=== PATIENT | female | born 1960 | race Caucasian/White ===

== ENCOUNTER 2019-11-02 15:44 | Emergency (ER) | payer OTHER, SELFPAY ==
[2019-11-02] VITALS (10 sets, daily range): BP systolic 167–206; BP diastolic 72–92; PULSE 68–82; RESP 15–23; TEMP 36.4–37; O2SAT 97–99
[2019-11-02 16:40] LABS: Add Manual Diff / Slide Review NO; Basophils Absolute Auto 100 /uL (0-100); Basophils Percent Auto 1.5 % (0-2); Eosinophils Absolute Auto 100 /uL (0-450); Eosinophils Percent Auto 1.7 % (2-4); Hemoglobin 16.2 g/dL (12.0-16.0); Lymphocytes Absolute Auto 1400 /uL (1100-4500); Lymphocytes Percent Auto 23.8 % (25-40); Mean Corpuscular Hemoglobin 30.4 PG (26-34); Mean Corpuscular Volume 92.3 fL (80-100); Monocytes Absolute Auto 700 /uL (0-900); Monocytes Percent Auto 12.4 % (3-14); Neutrophils Absolute Auto 3600 /uL (1500-7000); Neutrophils Percent Auto 60.6 % (50-75); Platelet Count 168 X10^3/uL (150-400); Red Blood Cell Count 5.31 X10^6/uL (4.0-5.2); Red Cell Distribution Width 13.8 % (11.6-14.8); White Blood Cell Count 5.9 X10^3/uL (4.5-11.0)
[2019-11-02] MEDS: SODIUM CHLORIDE 0.9% 1,000 ML 1000 ML IV ×2 (16:49→18:54)
[2019-11-02 16:54] LABS: INR 0.9 (0.9-1.3); Prothrombin Time 10.8 SECONDS (10.1-12.7)
[2019-11-02 16:57] LABS: PTT Partial Thromboplastin Tim 31 SECONDS (26.4-36.2)
[2019-11-02 17:21] LABS: Bacteria Urine Occasional (0-1); Culture Indicated Urine Cult Not Indicated; RBC Urine 1-5/HPF (0-5/HPF); Squamous Epithelial Cell Urine 1-5 /HPF (0-5/HPF); WBC Urine 1-5/HPF (0-5/HPF)
[2019-11-02 17:32] LABS: Magnesium 1.7 mg/dL (1.6-2.3); Phosphorous 3.9 mg/dL (2.5-4.5)
[2019-11-02 17:33] LABS: Alanine Aminotransferase 27 IU/L (<35); Albumin 3.9 g/dL (3.5-5.0); Albumin Globulin Ratio 1.3 (1.0-2.8); Alkaline Phosphatase 110 U/L (38-126); Aspartate Aminotransferase 30 IU/L (14-36); Bilirubin Total 0.4 mg/dL (0.2-1.3); Blood Urea Nitrogen 15 mg/dL (7-17); Carbon Dioxide 29 mmol/L (22-32); Chloride 104 mmol/L (98-107); Estimated Glomerular Filt Rate > 60.0 mL/min (>60); Glucose 380 mg/dL (70-100); HEMOLYSIS < 15 (0-50); Lipase 113 U/L (23-300); Potassium 4.7 mmol/L (3.4-5.1); Sodium 141 mmol/L (137-145); Total Protein 6.9 g/dL (6.3-8.2)
[2019-11-02 17:36] LABS: Ketones (Beta-Hydroxybutyrate) 0.34 mmol/L (<0.27)
--- NOTE | 2019-11-02 18:47 | DI.RAD.S_ITS ---
PROCEDURE: XR CHEST 1V INDICATIONS: cough TECHNIQUE: One view of the chest was acquired. COMPARISON: None. FINDINGS: Surgical changes and devices: None. Lungs and pleura: Lungs are clear. No pleural effusions or pneumothorax. Mediastinum: Mediastinal contours appear normal. Heart size is normal. Bones and chest wall: No suspicious bony lesions. Overlying soft tissues appear unremarkable. IMPRESSION: Normal chest. Dictated by: Page Andrade M.D. on 11/02/2019 at 20:08 Approved by: Page Andrade M.D. on 11/02/2019 at 20:09
[2019-11-02] MEDS: METOPROLOL TARTRATE 5 MG/5 ML INJ IV (19:30)
--- NOTE | 2019-11-02 22:04 | ED.RECABL ---
HPI - Recheck/Abnormal Lab/Rx <INGRIS Jolly - Last Filed: 11/02/19 22:30> General Chief Complaint: Recheck/Abnormal Lab/Rx Stated Complaint: Type 1 D, labs are off Time Seen by Provider: 11/02/19 16:29 Source: patient Mode of arrival: Ambulatory Limitations: no limitations History of Present Illness HPI narrative: This is a 59-year-old female, smoker, who presents to ED after she was referred by her primary care physician to ED for ketoacidosis. Patient states she was diagnosed with type 2 diabetes 16 years ago and now she has been using insulin last 7 years with Lantus 30 units in the morning, 3-6 units during evening with NovoLog as needed. Patient reports has been feeling tired recently but denies any recent changes in insulin doses or recent illness. Patient also currently using Enbrel and leflunomide for rheumatoid arthritis, also has history of hypertension. Patient also reports occasional very brief period of chest discomfort in the past usually associated with increase in activity. Denies any associated symptoms such as dizziness, breathing difficulty, nausea/vomiting, diaphoresis. 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 Related Data Home Medications Medication Instructions Recorded Confirmed atenolol 25 mg PO DAILY 11/02/19 11/02/19 diclofenac sodium 0 g TOPICAL PRN PRN 11/02/19 11/02/19 etanercept [Enbrel] SUBCUT 11/02/19 insulin aspart U-100 [Novolog unit SUBCUT 11/02/19 Flexpen U-100 Insulin] insulin glargine [Lantus Solostar unit SUBCUT 11/02/19 U-100 Insulin] leflunomide 20 mg PO DAILY 11/02/19 11/02/19 Allergies Allergy/AdvReac Type Severity Reaction Status Date / Time Sulfa (Sulfonamide Allergy Severe Anaphylaxis Verified 11/02/19 15:52 Antibiotics) methocarbamol [From Robaxin] Allergy Mild ITCHING Verified 11/02/19 15:52 Review of Systems <INGRIS Jolly - Last Filed: 11/02/19 22:30> Review of Systems Narrative: General: Denies fever, chills, (+) fatigue, malaise, sweats. HEENT: Denies sinus pain, ear pain, sore throat, difficulty swallowing, dizziness. Respiratory: Denies dyspnea, cough, wheezing, hemoptysis, sputum. Cardiovascular: Denies (+)occasional a brief period of chest pain but denies at this time, palpitations, orthopnea, edema. Gastrointestinal: Denies nausea, vomiting, abdominal pain, diarrhea, constipation, melena. : Denies dysuria, frequency, incontinence, hematuria, urinary retention. Musculoskeletal: Denies weakness, joint pain or bony pain. Skin: Denies rash, skin lesions, or other. Neurologic: Denies weakness, headache, numbness, change in speech, confusion, seizures, incoordination. Psychiatric: No concerning psychosocial issues. 12-point review of systems is negative except for those stated above. Patient History <INGRIS Jolly - Last Filed: 11/02/19 22:30> Medical History Bulging disc (Acute) Diabetes mellitus (Acute) Surgical History History of appendectomy (Acute) History of tonsillectomy (Acute) Previous back surgery (Acute) Social History Smoking Status: Current every day smoker Smoking Status: Current every day smoker tobacco type: cigarettes alcohol intake frequency: 0-2 drinks per day Substance Use Type: does not use Exam <INGRIS Jolly - Last Filed: 11/02/19 22:30> Narrative Exam Narrative: GEN: Alert, oriented x 3, well appearing and nourished, and in no acute distress. Head: Normal cephalic, atraumatic. No scalp or temporal tenderness, palpable mass or rash. EYES: Pupils are equal, round, and reactive to light and accommodation. Extraocular muscles are intact bilaterally. There is no subconjunctival hemorrhage, exudate and sclera non-icteric. ENT: Bilateral auditory canals and tympanic membranes clear. Hearing grossly intact. Nose without bleeding, purulent discharge or deviation. Facial sinuses nontender to palpate. Mucous membrane moist, no mucosal lesion. Throat without erythema, tonsillar hypertrophy or exudate. Uvula in midline, airway patent. Neck: Trachea in midline. No JVD, non-tender without lymphadenopathy. No masses or thyroid megaly. Supple, non-tender and no meningeal signs. CARDIAC: Normal regular rate and rhythm without murmurs, gallops, or rubs. No chest wall tenderness. No peripheral edema, cyanosis or pallor. Capillary refill is less than 2 seconds. RESPIRATORY: Lungs are clear to auscultate bilaterally. No cough, wheezes, rales, or rhonchi. No stridor, respiratory distress, increase work of breathing, or accessary muscle used. ABD: Abdomen soft, nontender and non-distended. No guarding or rebound tenderness to palpate. Bowel sounds are normal in all 4 quadrants. There is no palpable masses or organomegaly. EXT: Full painless ROM of all extremities with no loss of sensation, strength, effusion or edema. SKIN: Warm, dry, normal color for patient. No erythema, lesions or rash over visible areas. BACK: Nontender without deformity or crepitance. No flank tenderness. NEUROLOGICAL: Alert and oriented to place, time and person. Sensation and motor function intact bilaterally. No facial droops, dysphasia. PSYCHIATRIC: Good judgement and reason, without hallucinations, abnormal affect or abnormal behaviors during the examination. Initial Vital Signs Initial Vital Signs: Vital Signs Temperature 97.5 F L 11/02/19 15:46 Pulse Rate 82 11/02/19 15:46 Respiratory Rate 18 11/02/19 15:46 Blood Pressure 179/80 H 11/02/19 15:46 Pulse Oximetry 98 11/02/19 15:46 <Bud Ontiveors DO - Last Filed: 11/03/19 06:58> Initial Vital Signs Initial Vital Signs: Vital Signs Temperature 97.5 F L 11/02/19 15:46 Pulse Rate 82 11/02/19 15:46 Respiratory Rate 18 11/02/19 15:46 Blood Pressure 179/80 H 11/02/19 15:46 Pulse Oximetry 98 11/02/19 15:46 Scores <INGRIS Jolly - Last Filed: 11/02/19 22:30> GCS [place] coma scale eye opening: Spontaneous [place] coma scale verbal response: Orientated [place] coma scale motor response: Obey commands [place] coma scale total score: 15 Course <INGRIS Jolly - Last Filed: 11/02/19 22:30> Orders Ordered: Discontinued Medications Sodium Chloride (Normal Saline 0.9%) 1,000 mls @ 1,000 mls/hr IV BOLUS ONE Stop: 11/02/19 17:05 Last Infusion: 11/02/19 18:54 Dose: 0 mls/hr Documented by: Admin: 11/02/19 16:49 Dose: 1,000 mls/hr Documented by: YOSELIN Sodium Chloride (Normal Saline 0.9%) 1,000 mls @ 1,000 mls/hr IV BOLUS ONE Stop: 11/02/19 19:32 Last Infusion: 11/02/19 19:52 Dose: 0 mls/hr Documented by: Infusion: 11/02/19 19:13 Dose: 500 mls/hr Documented by: Admin: 11/02/19 18:54 Dose: 1,000 mls/hr Documented by: YOSELIN Metoprolol Tartrate (Lopressor) 5 mg IV NOW ONE Stop: 11/02/19 19:06 Last Admin: 11/02/19 19:30 Dose: 5 mg Documented by: ROMI Ondansetron HCl (Zofran) 4 mg IV NOW ONE Stop: 11/02/19 16:07 Last Admin: 11/02/19 16:36 Dose: Not Given Documented by: ROSEMARY Vital Signs Vital signs: Vital Signs - 8 hr 11/02/19 15:46 11/02/19 16:37 11/02/19 16:40 Temperature 97.5 F L 98.6 F Pulse Rate 82 70 72 Respiratory Rate 18 23 20 Blood Pressure 179/80 H Blood Pressure [Left Arm] 195/92 H 201/89 H Pulse Oximetry 98 99 98 11/02/19 17:46 11/02/19 18:00 11/02/19 18:30 Temperature Pulse Rate 76 71 74 Respiratory Rate 16 17 16 Blood Pressure Blood Pressure [Left Arm] 199/83 H 191/80 H 196/83 H Pulse Oximetry 98 98 98 11/02/19 18:58 11/02/19 19:41 11/02/19 19:50 Temperature Pulse Rate 68 71 Respiratory Rate 20 16 Blood Pressure Blood Pressure [Left Arm] 206/84 H 184/77 H 171/73 H Pulse Oximetry 97 98 11/02/19 20:09 Temperature Pulse Rate 72 Respiratory Rate 15 Blood Pressure 167/72 H Blood Pressure [Left Arm] Pulse Oximetry 98 <Bud Ontiveros DO - Last Filed: 11/03/19 06:58> Orders Ordered: Discontinued Medications Sodium Chloride (Normal Saline 0.9%) 1,000 mls @ 1,000 mls/hr IV BOLUS ONE Stop: 11/02/19 17:05 Last Infusion: 11/02/19 18:54 Dose: 0 mls/hr Documented by: Admin: 11/02/19 16:49 Dose: 1,000 mls/hr Documented by: YOSELIN Sodium Chloride (Normal Saline 0.9%) 1,000 mls @ 1,000 mls/hr IV BOLUS ONE Stop: 11/02/19 19:32 Last Infusion: 11/02/19 19:52 Dose: 0 mls/hr Documented by: Infusion: 11/02/19 19:13 Dose: 500 mls/hr Documented by: Admin: 11/02/19 18:54 Dose: 1,000 mls/hr Documented by: YOSELIN Metoprolol Tartrate (Lopressor) 5 mg IV NOW ONE Stop: 11/02/19 19:06 Last Admin: 11/02/19 19:30 Dose: 5 mg Documented by: ROMI Ondansetron HCl (Zofran) 4 mg IV NOW ONE Stop: 11/02/19 16:07 Last Admin: 11/02/19 16:36 Dose: Not Given Documented by: ROSEMARY Vital Signs Vital signs: Vital Signs - 8 hr 11/02/19 15:46 11/02/19 16:37 11/02/19 16:40 Temperature 97.5 F L 98.6 F Pulse Rate 82 70 72 Respiratory Rate 18 23 20 Blood Pressure 179/80 H Blood Pressure [Left Arm] 195/92 H 201/89 H Pulse Oximetry 98 99 98 11/02/19 17:46 11/02/19 18:00 11/02/19 18:30 Temperature Pulse Rate 76 71 74 Respiratory Rate 16 17 16 Blood Pressure Blood Pressure [Left Arm] 199/83 H 191/80 H 196/83 H Pulse Oximetry 98 98 98 11/02/19 18:58 11/02/19 19:41 11/02/19 19:50 Temperature Pulse Rate 68 71 Respiratory Rate 20 16 Blood Pressure Blood Pressure [Left Arm] 206/84 H 184/77 H 171/73 H Pulse Oximetry 97 98 11/02/19 20:09 Temperature Pulse Rate 72 Respiratory Rate 15 Blood Pressure 167/72 H Blood Pressure [Left Arm] Pulse Oximetry 98 MDM - Recheck/Abnormal Lab/Rx <INGRIS Jolly - Last Filed: 11/02/19 22:30> Differential Diagnosis Differential diagnosis: Likely other (Diabetic ketoacidosis, hyperglycemia, infection, dehydration) Medical Records Attestation: I reviewed the patient's medical records. Lab Data Attestation: I reviewed the patient's lab results. Result diagrams: 11/02/19 16:17 11/02/19 17:17 Labs: Lab Results 11/02/19 11/02/19 11/02/19 Range/Units 16:16 16:17 16:17 WBC 5.9 (4.5-11.0) X10^3/uL RBC 5.31 H (4.0-5.2) X10^6/uL Hgb 16.2 H (12.0-16.0) g/dL Hct 49.0 H (36-46) % MCV 92.3 (80-100) fL MCH 30.4 (26-34) PG MCHC 33.0 (30-36) % RDW 13.8 (11.6-14.8) % Plt Count 168 (150-400) X10^3/uL Neut % (Auto) 60.6 (50-75) % Lymph % (Auto) 23.8 L (25-40) % [place] % (Auto) 12.4 (3-14) % Eos % (Auto) 1.7 L (2-4) % Baso % (Auto) 1.5 (0-2) % Neut # (Auto) 3600 (7228-6301) /uL Lymph # (Auto) 1400 (6030-9973) /uL [place] # (Auto) 700 (0-900) /uL Eos # (Auto) 100 (0-450) /uL Baso # (Auto) 100 (0-100) /uL PT 10.8 (10.1-12.7) SECONDS INR 0.9 (0.9-1.3) APTT 31 (26.4-36.2) SECONDS Sodium (137-145) mmol/L Potassium (3.4-5.1) mmol/L Chloride (98-107) mmol/L Carbon Dioxide (22-32) mmol/L BUN (7-17) mg/dL Creatinine (0.52-1.04) mg/dL Estimated GFR (>60) mL/min BUN/Creatinine Ratio (6-22) Glucose (70-100) mg/dL Calcium (8.4-10.2) mg/dL Phosphorus (2.5-4.5) mg/dL Magnesium (1.6-2.3) mg/dL Total Bilirubin (0.2-1.3) mg/dL AST (14-36) IU/L ALT (<35) IU/L Alkaline Phosphatase (38-126) U/L Total Protein (6.3-8.2) g/dL Albumin (3.5-5.0) g/dL Globulin (1.7-4.1) g/dL Albumin/Globulin Ratio (1.0-2.8) Lipase (23-300) U/L Urine RBC 1-5/hpf (0-5/HPF) Urine WBC 1-5/hpf (0-5/HPF) Ur Squamous Epith Cells 1-5 /hpf (0-5/HPF) Urine Bacteria Occasional (0-1) (None) Ur Culture Indicated? Cult not indicated Ketones (<0.27) mmol/L 11/02/19 11/02/19 Range/Units 17:17 17:17 WBC (4.5-11.0) X10^3/uL RBC (4.0-5.2) X10^6/uL Hgb (12.0-16.0) g/dL Hct (36-46) % MCV (80-100) fL MCH (26-34) PG MCHC (30-36) % RDW (11.6-14.8) % Plt Count (150-400) X10^3/uL Neut % (Auto) (50-75) % Lymph % (Auto) (25-40) % [place] % (Auto) (3-14) % Eos % (Auto) (2-4) % Baso % (Auto) (0-2) % Neut # (Auto) (2078-0828) /uL Lymph # (Auto) (9620-0077) /uL [place] # (Auto) (0-900) /uL Eos # (Auto) (0-450) /uL Baso # (Auto) (0-100) /uL PT (10.1-12.7) SECONDS INR (0.9-1.3) APTT (26.4-36.2) SECONDS Sodium 141 (137-145) mmol/L Potassium 4.7 (3.4-5.1) mmol/L Chloride 104 (98-107) mmol/L Carbon Dioxide 29 (22-32) mmol/L BUN 15 (7-17) mg/dL Creatinine 0.60 (0.52-1.04) mg/dL Estimated GFR > 60.0 (>60) mL/min BUN/Creatinine Ratio 25.0 H (6-22) Glucose 380 H (70-100) mg/dL Calcium 10.0 (8.4-10.2) mg/dL Phosphorus 3.9 (2.5-4.5) mg/dL Magnesium 1.7 (1.6-2.3) mg/dL Total Bilirubin 0.4 (0.2-1.3) mg/dL AST 30 (14-36) IU/L ALT 27 (<35) IU/L Alkaline Phosphatase 110 (38-126) U/L Total Protein 6.9 (6.3-8.2) g/dL Albumin 3.9 (3.5-5.0) g/dL Globulin 3.0 (1.7-4.1) g/dL Albumin/Globulin Ratio 1.3 (1.0-2.8) Lipase 113 (23-300) U/L Urine RBC (0-5/HPF) Urine WBC (0-5/HPF) Ur Squamous Epith Cells (0-5/HPF) Urine Bacteria (None) Ur Culture Indicated? Ketones 0.34 H (<0.27) mmol/L Point of Care Testing Glucose POC 256 Urine Dip Bedside Urine Glucose 1000 mg/dl Bedside Urine Bilirubin - Negative Bedside Urine Ketone +/- 5 Urine Specific Odd 1.015 Bedside Urine Occult Blood +/- Bedside Urine pH 5.5 Bedside Urine Protein - Negative Bedside Urine Urobilinogen - Negative Bedside Urine Nitrite - Negative Bedside Urine Leukocytes +/- 15 Esterase Imaging Data Chest x-ray: Radiologist's Impression: [address] [address] XRay Report Signed Patient: Candido Gee TMR#: [id number] : 2Acct:[id number] Age/Sex: 59 / FDate of Service: 11/02/19 Loc: ED Accession Number: [id number] Procedure: XR chest 1V Ordering Provider: Melvin Holland PROCEDURE: XR CHEST 1V INDICATIONS: cough TECHNIQUE: One view of the chest was acquired. COMPARISON: None. FINDINGS: Surgical changes and devices: None. Lungs and pleura: Lungs are clear. No pleural effusions or pneumothorax. Mediastinum: Mediastinal contours appear normal. Heart size is normal. Bones and chest wall: No suspicious bony lesions. Overlying soft tissues appear unremarkable. IMPRESSION: Normal chest. Dictated by: Page Andrade M.D. on 11/02/2019 at 20:08 Approved by: Page Andrade M.D. on 11/02/2019 at 20:09 ECG Data Attestation: I personally reviewed and interpreted this ECG as follows: Prior ECG tracings: not available for review Interpretation: Sinus rhythm rate at 69. Normal [place]. NE interval 173, QRS duration 73, QT/QTC for 407/426. No ST elevation or depression. MDM Narrative Medical decision making narrative: This is a long-time diabetic patient who uses long and short-acting insulins at home who was referred to ED for further evaluation for ketoacidosis by her primary care physician at [facility] [place]. Patient reports has been feeling tired but there is no recent illnesses and denies any recent changes on insulin dosage. EKG is sinus rhythm. Chest x-ray does not appreciate any acute findings. Urine dipstick showed 1000 mg/dL of glucose, +/- ketones and blood with +/- Leuks without nitrites. Microscopic UA appears to be contaminated urine. Lab test results appears to be she is slightly dehydrated without leukocytosis. Serum glucose 380 with normal potassium, lipase and slightly increased BUN and creatinine ratio of 25 without elevation in CO2. Serum ketones was 0.34 (<0.27) which is mildly elevated. Patient was hydrated with 1.5 L of normal saline. Fingerstick glucose recheck and it has decreased to 256. It is not certain the causes of elevated blood sugar at this time. Patient had elevated blood pressure without symptoms while in ED and she takes atenolol 25 mg daily. Patient was medicated with metoprolol 5 mg IV and the blood pressure has improved. Patient advised to follow-up with PCP with elevated blood pressure and hyperglycemic episodes. Patient advised to continue to use insulin as scheduled which may need adjustment on both medications. Patient's medication for RA has side effects for hypertension. Patient also advised to follow up with chest pain with primary care physician in the future with echocardiogram, stress test. Patient does not have chest pain at this time and normal rhythm in EKG. Return precautions were discussed with the patient and patient verbalized understanding and agrees with the treatment plan. <Bud Ontiveros, DO - Last Filed: 11/03/19 06:58> Lab Data Labs: Lab Results 11/02/19 11/02/19 11/02/19 Range/Units 16:16 16:17 16:17 WBC 5.9 (4.5-11.0) X10^3/uL RBC 5.31 H (4.0-5.2) X10^6/uL Hgb 16.2 H (12.0-16.0) g/dL Hct 49.0 H (36-46) % MCV 92.3 (80-100) fL MCH 30.4 (26-34) PG MCHC 33.0 (30-36) % RDW 13.8 (11.6-14.8) % Plt Count 168 (150-400) X10^3/uL Neut % (Auto) 60.6 (50-75) % Lymph % (Auto) 23.8 L (25-40) % [place] % (Auto) 12.4 (3-14) % Eos % (Auto) 1.7 L (2-4) % Baso % (Auto) 1.5 (0-2) % Neut # (Auto) 3600 (0762-2814) /uL Lymph # (Auto) 1400 (9355-1041) /uL [place] # (Auto) 700 (0-900) /uL Eos # (Auto) 100 (0-450) /uL Baso # (Auto) 100 (0-100) /uL PT 10.8 (10.1-12.7) SECONDS INR 0.9 (0.9-1.3) APTT 31 (26.4-36.2) SECONDS Sodium (137-145) mmol/L Potassium (3.4-5.1) mmol/L Chloride (98-107) mmol/L Carbon Dioxide (22-32) mmol/L BUN (7-17) mg/dL Creatinine (0.52-1.04) mg/dL Estimated GFR (>60) mL/min BUN/Creatinine Ratio (6-22) Glucose (70-100) mg/dL Calcium (8.4-10.2) mg/dL Phosphorus (2.5-4.5) mg/dL Magnesium (1.6-2.3) mg/dL Total Bilirubin (0.2-1.3) mg/dL AST (14-36) IU/L ALT (<35) IU/L Alkaline Phosphatase (38-126) U/L Total Protein (6.3-8.2) g/dL Albumin (3.5-5.0) g/dL Globulin (1.7-4.1) g/dL Albumin/Globulin Ratio (1.0-2.8) Lipase (23-300) U/L Urine RBC 1-5/hpf (0-5/HPF) Urine WBC 1-5/hpf (0-5/HPF) Ur Squamous Epith Cells 1-5 /hpf (0-5/HPF) Urine Bacteria Occasional (0-1) (None) Ur Culture Indicated? Cult not indicated Ketones (<0.27) mmol/L 11/02/19 11/02/19 Range/Units 17:17 17:17 WBC (4.5-11.0) X10^3/uL RBC (4.0-5.2) X10^6/uL Hgb (12.0-16.0) g/dL Hct (36-46) % MCV (80-100) fL MCH (26-34) PG MCHC (30-36) % RDW (11.6-14.8) % Plt Count (150-400) X10^3/uL Neut % (Auto) (50-75) % Lymph % (Auto) (25-40) % [place] % (Auto) (3-14) % Eos % (Auto) (2-4) % Baso % (Auto) (0-2) % Neut # (Auto) (2965-7183) /uL Lymph # (Auto) (8989-0881) /uL [place] # (Auto) (0-900) /uL Eos # (Auto) (0-450) /uL Baso # (Auto) (0-100) /uL PT (10.1-12.7) SECONDS INR (0.9-1.3) APTT (26.4-36.2) SECONDS Sodium 141 (137-145) mmol/L Potassium 4.7 (3.4-5.1) mmol/L Chloride 104 (98-107) mmol/L Carbon Dioxide 29 (22-32) mmol/L BUN 15 (7-17) mg/dL Creatinine 0.60 (0.52-1.04) mg/dL Estimated GFR > 60.0 (>60) mL/min BUN/Creatinine Ratio 25.0 H (6-22) Glucose 380 H (70-100) mg/dL Calcium 10.0 (8.4-10.2) mg/dL Phosphorus 3.9 (2.5-4.5) mg/dL Magnesium 1.7 (1.6-2.3) mg/dL Total Bilirubin 0.4 (0.2-1.3) mg/dL AST 30 (14-36) IU/L ALT 27 (<35) IU/L Alkaline Phosphatase 110 (38-126) U/L Total Protein 6.9 (6.3-8.2) g/dL Albumin 3.9 (3.5-5.0) g/dL Globulin 3.0 (1.7-4.1) g/dL Albumin/Globulin Ratio 1.3 (1.0-2.8) Lipase 113 (23-300) U/L Urine RBC (0-5/HPF) Urine WBC (0-5/HPF) Ur Squamous Epith Cells (0-5/HPF) Urine Bacteria (None) Ur Culture Indicated? Ketones 0.34 H (<0.27) mmol/L Point of Care Testing Glucose POC 256 Urine Dip Bedside Urine Glucose 1000 mg/dl Bedside Urine Bilirubin - Negative Bedside Urine Ketone +/- 5 Urine Specific Odd 1.015 Bedside Urine Occult Blood +/- Bedside Urine pH 5.5 Bedside Urine Protein - Negative Bedside Urine Urobilinogen - Negative Bedside Urine Nitrite - Negative Bedside Urine Leukocytes +/- 15 Esterase Discharge Plan Departure Patient Disposition: Home Clinical Impression: Blood glucose elevated, Dehydration Hypertension Qualifiers: Hypertension type: unspecified Qualified Code(s): I10 - Essential (primary) hypertension Discharge Date/Time: 11/02/19 20:10 Activity Restrictions/Additional Instructions: You have been diagnosed with [hyperglycemia, hypertension and dehydration. Your serum glucose today was 380. Serum ketones slightly elevated at 0.34 but acidosis appreciated. There is no obvious signs of infection noted today. You're hydrated with IV fluid with 1.5 liter in ED and your blood glucose has been improved to 256mg/dL.]. What to do: *Take your medications as directed. Please check your blood glucose and use your insulin. Please hydrate herself adequately at home. Please take your blood pressure medication as instructed and follow with her primary care physician for HTN and hyperglycemia. your given additional dose of Metoprolol 5mg IV while in ED. *Follow up with your primary care provider in 2-3 days, call for an appointment. Let them know you were seen in the ED and that we asked you to be seen in follow up. *Return to ED if you have any new, worsening, or concerning symptoms, such as [chest pain, breathing difficulty, unable to tolerate fluids, fever or any acute concerns]. Prescriptions: No Action atenolol 25 mg tablet 25 mg PO DAILY RF: 0 leflunomide 20 mg tablet 20 mg PO DAILY RF: 0 insulin aspart U-100 [Novolog Flexpen U-100 Insulin] 100 unit/mL (3 mL) insulin pen SUBCUT RF: 0 Enbrel 50 mg/mL (1 mL) syringe SUBCUT RF: 0 Lantus Solostar U-100 Insulin 100 unit/mL (3 mL) insulin pen SUBCUT RF: 0 diclofenac sodium 1 % gel 0 g TOPICAL PRN PRN (Reason: pain) RF: 0 Referrals: Donna Cody [Primary Care Provider] - <Bud Ontiveros DO - Last Filed: 11/03/19 06:58> Sign Out Provider Sign Out Attestation: Dr Ontiveros Co-Sign Statement: I was available for consultation during this patient's emergency department visit. This chart is signed by myself for administrative purposes only. I did not have direct contact with this patient during this visit. They were seen independently by the APC.
== END 2019-11-02 20:10 | disposition home or self-care (01) ==
PROVIDERS: Emergency Provider Nurse Practitioner Family; PCP Physician Assistant Medical
DX: E11.65 Type 2 diabetes mellitus with hyperglycemia (principal); Z79.4 Long term (current) use of insulin; E86.0 Dehydration; I10 Essential (primary) hypertension; R79.89 Other specified abnormal findings of blood chemistry; R07.9 Chest pain, unspecified
CPT/HCPCS: 36415; 71045; 80053; 81003; 81015; 82009; 82962; 83690; 83735; 84100; 85025; 85610; 85730; 93005; 96361; 96374; 99284; 99285

== ENCOUNTER → 2021-07-06 12:49 | Outpatient (CLI) | payer OTHER, SELFPAY ==
--- NOTE | 2021-07-06 | DI.MG.S_ITS ---
BILATERAL DIGITAL SCREENING MAMMOGRAM 3D/2D WITH CAD: 07/06/2021 CLINICAL: Routine screening. Family history of breast cancer. Comparison is made to exams dated: 01/29/2016 mammogram - [facility], 01/11/2016 mammogram, 12/21/2013 mammogram, and 01/21/2019 mammogram - [facility]. There are scattered fibroglandular elements in both breasts. Current study was also evaluated with a Computer Aided Detection (CAD) system. No significant masses, calcifications, or other findings are seen in either breast. There has been no significant interval change. IMPRESSION: NEGATIVE There is no mammographic evidence of malignancy. A 1 year screening mammogram is recommended. This exam was interpreted at Station ID: [id number]. NOTE: For mammograms, a report in lay terms will be sent to the patient. Approximately 15% of breast malignancies will not be visualized mammographically. In the management of a palpable breast mass, a negative mammogram must not discourage biopsy of a clinically suspicious lesion. Electronically Signed By: Page [email or web address]/[email or web address]:07/06/2021 13:57:03 copy to: MARILOU CAZARES letter sent: Normal Exam ACR BI-RADS Category 1: Negative [id number]
== END ==
PROVIDERS: PCP Physician Assistant Medical; Referring Provider Physician Assistant Medical; Visit Provider Physician Assistant Medical
DX: Z12.31 Encounter for screening mammogram for malignant neoplasm of breast (principal); Z80.3 Family history of malignant neoplasm of breast
CPT/HCPCS: 77063; 77067